=== PATIENT | female | born 1945 | race Caucasian/White ===

== ENCOUNTER → 2023-01-13 | Outpatient (CLI) | payer BC ==
[2023-01-13 22:09] LABS: Basophils # (A) 0.02 X 10*3/uL (0.00-0.10); Basophils % (A) 0.3 %; Eosinophils # (A) 0.03 X 10*3/uL (0.04-0.35); Eosinophils % (A) 0.4 %; HCT 37.9 % (37.2-46.3); Immature Grans, Automated 0.5 %; Lymphocytes % (A) 24.5 %; MCH 28.8 pg (27.0-32.0); MCHC 31.7 g/dL (32.0-37.0); MCV 91.1 fL (80.0-97.0); Mean Platelet Volume 12.4 fL (9.5-12.2); Monocytes # (A) 0.57 X 10*3/uL (0.20-1.00); Monocytes % (A) 7.3 %; NRBC Per 100 WBC 0 /100 WBCS (0.0-0.0); Platelet Count 199 X 10*3/uL (140-440); RBC 4.16 X 10*6/uL (4.10-5.20); RDW 14.1 % (11.5-14.5); WBC 7.76 X 10*3/uL (4.50-10.00)
[2023-01-14 02:13] LABS: African American GFR (CKD) 70.5 (60.0-200.0); Albumin 4.5 g/dL (3.8-4.9); Albumin/Globulin Ratio 2.37 (1.60-3.17); Anion Gap 13.5 mmol/L (10.00-18.00); BUN/Creat Ratio 16.11 Ratio (12.00-20.00); Blood Urea Nitrogen 14.5 mg/dL (9.0-27.0); Calcium 8.7 mg/dL (8.7-10.3); Carbon Dioxide 27.5 mmol/L (20.0-27.5); Globulin 1.9 g/dL (1.6-3.3); Non-African American GFR(CKD) 60.8 (60.0-200.0); Potassium 3.8 mmol/L (3.5-5.5); Total Bilirubin 0.4 mg/dL (0.30-1.20); Total Protein 6.4 g/dL (6.2-8.2)
== END | disposition home or self-care (01) ==
LOC: LABPAT 15:19
PROVIDERS: ATTEND Surgery
DX: Z01.818 Encounter for other preprocedural examination (principal); R94.31 Abnormal electrocardiogram [ECG] [EKG]
CPT/HCPCS: 80053; 85025; 93005

== ENCOUNTER → 2023-01-13 | Outpatient (CLI) | payer BC ==
[2023-01-13 14:54] VITALS: BP 116/76; PULSE 69; TEMP 97.9; BMI 26.6
--- NOTE | 2023-01-13 15:47 | P.HPBAR ---
Bariatric H&P - History & Physicial H&P Date: 01/13/23 History & Physicial: Visit/CC: lap band Patient initial contact: Initial weight: Initial weight in pounds: Height: 5 ft 2 in Initial BMI: Last weight: Current weight: 66.224 kg Current weight in pounds: 146.00 Current BMI: 26.6 [place] body weight (based on NIH guidelines): 49.895 kg Excess body weight loss: The patient is a 77 year-old F who presents for Bariatric Assessment. Patient presents today for Calderon fall. She's not been seen in many years. Patient wants her LAP-BAND removed. She has chronic issues with dysphagia. Past Medical History Past Medical History: Asthma, Cancer, Diabetes Mellitus, Hyperlipidemia, Hypertension, Thyroid Disorder Additional Past Medical History / Comment(s): melanoma, uterine ca History of Any Multi-Drug Resistant Organisms: MRSA Year Discovered:: 2012 MDRO Source:: right foot wound Past Surgical History: Adenoidectomy, Appendectomy, Bariatric Surgery, Section, Coronary Bypass/CABG, Heart Catheterization, Hysterectomy, Tonsillectomy Additional Past Surgical History / Comment(s): lap band, triple bypass, total hysterectomy, right toe amputation Past Anesthesia/Blood Transfusion Reactions: Postoperative Nausea & Vomiting (PONV) Past Psychological History: Bipolar, Depression Smoking Status: Former smoker Past Alcohol Use History: Rare Past Drug Use History: None Reported Surgical - Exam Vital Signs Temp Pulse BP 97.9 F 69 116/76 01/13/23 14:50 01/13/23 14:50 01/13/23 14:50 - General well developed, well nourished, no distress - Eyes PERRL - ENT normal pinna - Neck no masses - Respiratory normal expansion - Cardiovascular Rhythm: regular - Abdomen Abdomen: soft, non tender Bariatric Assessment & Plan Plan: Patient will be scheduled for removal of LAP-BAND system. Bariatric Checklist Checklist: Plan: Checklist: EGD: 1. Hiatal hernia: 2. H. Pylori: HgbA1c: Vitamin D: Smoking: Primary care physician referral: Dr. Watts Psychiatry clearance: Cardiology clearance: Sleep study: Diet journal: VTE risk score: VTE risk level: Rehab needs at discharge:
== END ==
LOC: BARWHC3 14:05
PROVIDERS: ATTEND Surgery
DX: E66.01 Morbid (severe) obesity due to excess calories (principal); Z68.26 Body mass index [BMI] 26.0-26.9, adult; J45.909 Unspecified asthma, uncomplicated; E11.9 Type 2 diabetes mellitus without complications; E78.5 Hyperlipidemia, unspecified; I10 Essential (primary) hypertension; Z46.51 Encounter for fitting and adjustment of gastric lap band; Z87.891 Personal history of nicotine dependence
CPT/HCPCS: 99211